=== PATIENT | female | born 1980 | race African-American/Black ===

== ENCOUNTER → 2021-08-15 | Outpatient (CLI) | payer OTHER, MEDICAID | LOC: M.PC 09:09 | PROVIDERS: ATTEND Physical Medicine & Rehabilitation | DX: M51.16 Intervertebral disc disorders with radiculopathy, lumbar region (principal); M47.26 Other spondylosis with radiculopathy, lumbar region; G96.191 Perineural cyst; M79.605 Pain in left leg ==

== ENCOUNTER → 2021-08-29 | Outpatient (CLI) | payer OTHER, MEDICAID ==
[~2021-08-29] MED LIST: SERTRALINE HCL100 MG PO; TIZANIDINE HCL4 M1 PO
== END | disposition home or self-care (01) ==
LOC: M.PC 09:33
PROVIDERS: ATTEND Physical Medicine & Rehabilitation
DX: M54.59 Other low back pain (principal); M51.16 Intervertebral disc disorders with radiculopathy, lumbar region; M47.26 Other spondylosis with radiculopathy, lumbar region; M79.605 Pain in left leg; F41.9 Anxiety disorder, unspecified; F32.9 Major depressive disorder, single episode, unspecified; Z98.890 Other specified postprocedural states; Z79.899 Other long term (current) drug therapy; Z88.0 Allergy status to penicillin

== ENCOUNTER → 2021-09-12 | Outpatient (CLI) | payer OTHER, MEDICAID | LOC: M.PC 09:21 | PROVIDERS: ATTEND Physical Medicine & Rehabilitation | DX: M47.26 Other spondylosis with radiculopathy, lumbar region (principal); M51.16 Intervertebral disc disorders with radiculopathy, lumbar region; M79.605 Pain in left leg; G96.191 Perineural cyst ==

== ENCOUNTER → 2021-09-26 | Outpatient (CLI) | payer OTHER, MEDICAID | LOC: M.PC 09:51 | PROVIDERS: ATTEND Physical Medicine & Rehabilitation | DX: M47.26 Other spondylosis with radiculopathy, lumbar region (principal); M51.16 Intervertebral disc disorders with radiculopathy, lumbar region; M25.78 Osteophyte, vertebrae; G96.191 Perineural cyst; M79.605 Pain in left leg ==

== ENCOUNTER → 2021-10-08 | Outpatient (CLI) | payer OTHER, MEDICAID | LOC: M.PC 09:10 | PROVIDERS: ATTEND Physical Medicine & Rehabilitation | DX: M47.26 Other spondylosis with radiculopathy, lumbar region (principal); M51.16 Intervertebral disc disorders with radiculopathy, lumbar region; M79.605 Pain in left leg; G96.191 Perineural cyst; Z88.0 Allergy status to penicillin ==